=== PATIENT | male | born 1945 | race Caucasian/White ===

== ENCOUNTER → 2025-02-26 09:06 | Outpatient (REF) | payer MEDICARE, OTHER, SELFPAY | LOC: RCS 09:06 | PROVIDERS: ATTENDING PHYSICIAN Internal Medicine Cardiovascular Disease; FAMILY PHYSICIAN Internal Medicine | DX: I10 Essential (primary) hypertension (principal); R06.09 Other forms of dyspnea | CPT/HCPCS: 93306 ==

== ENCOUNTER → 2025-03-10 10:21 | Outpatient (REF) | payer MEDICARE, OTHER, SELFPAY | LOC: RCS 10:21 | PROVIDERS: ATTENDING PHYSICIAN Internal Medicine Cardiovascular Disease | DX: I10 Essential (primary) hypertension (principal); R06.09 Other forms of dyspnea | CPT/HCPCS: 93017 ==